=== PATIENT | male | born 1990 | race Caucasian/White ===

== ENCOUNTER 2017-02-24 18:25 | Inpatient (IN) | payer BC, OTHER ==
[~2017-02-24] VITALS: Ht 180.3 cm; Wt 54.0 kg
--- NOTE | 2017-02-25 01:05 | NUR ---
PRE-ADMISSION NOTE: Patient assessed in intake office at 0050 on 02/25/2017. Patient is ambulatory with steady gate, stable, AOx4, speech is clear. Patient states that he is here, in the [facility] " for Safety Detox from Benzodiazepines, Alcohol, and Opioid dependence". Patient states that he used Heroin via IV 1 gram every day since 2008. Last used 1 gram on 02/24/2017 at 1900". Patient also reports he used "Xanax 2 mg PO every two week. Last used 2 mg Xanax PO one week ago" . Finally, patient reports that he used Alcohol - Vodka 150 ml x 1 week. Last used Alcohol "Vodka 150 ml on "02/23/2017 ". Patient can't recalls exactly time he taken. Patient reports used Alcohol "Vodka x1 week since 2008 ". Patient reports smoking "1 pack of cigarettes every day". Patient reports Allergy to Cefaclor. Patient placed on Full Code, Regular Diet, Fall and Seizures Precautions. Patient denies History of Seizures. Patient's COWS 7, CIWA 7. The patient reported the following symptoms of withdrawal: anxiety, agitation, nervousness, tremors that can be felt, diaphoresis, restless legs, and fatigue. Patient denies SI/HI. Breathing is even and unlabored. Patient denies SOB and chest pain. Last BM was "02/24/2017". VS: T: 98.2; BP: 126/77; HR: 104; RR: 19; O2 SAT: 96%. Patient denies pain now: "0/10". Patient instructed on unit protocol of vitals Q4H and COWS/CIWA assessments. Patient verbalized understanding and agreement. Patient also instructed on policy regarding destruction of any controlled substances/prescriptions brought to facility, and handling of all medications. Patient verbalized understanding and agreement. Will complete admission assessment when patient is brought up to unit.
[2017-02-25 01:13] VITALS: BP 126/77
--- NOTE | 2017-02-25 01:13 | NUR ---
ADMISSION NOTE New patient is a 26 year old male admitted to [facility] on 02/25/2017 at 0113 for medically supervised safety withdrawal from Benzodiazepines, Alcohol and Opioid Patient reports Allergy to Cefaclor. Patient placed on Full Code, Regular Diet, Fall and Seizures Precautions. Patient denies a history of withdrawal-induced seizures. Past Medical History: Anxiety, Depression, Asthma, Chronic tobacco use, Alcohol dependence, Opioid dependence, Kidney Disease. Patient reports "I do not have PCP". Pre-assessment completed in intake. Patient provided UDS test at this time. Patient is ambulatory with steady gate, stable, A&Ox4, speech is clear. Height: 71 in, Weight:119 lbs by standing scale. VS upon admission: T: 98.4; BP: 122/77; HR: 104; RR: 19; O2 SAT: 96%. Patient denies pain now: "0/10". COWS 7, CIWA 7. The patient presented with anxiety, agitation, nervousness, tremors that can be felt, diaphoresis, restless legs, and fatigue. Patient denies SI/HI. Upon initial assessment, patient's Respirations unlabored and even. Patient denies SOB and chest pain. Lungs Sounds are clear bilaterally. Bowel Sounds active in all x4 quadrants. Abdomen is soft and non-tender. PERRLA, brisk capillary refill, pit shoveler equal and strong. Skin is intact, warm and dry to touch. Patient reports the following Substances Use: 1. "Heroin via IV since 2008. Heroin via IV 1 gram every day since 2014. Last used 1 gram on 02/24/2017 at 1900". 2. "Xanax PO since 2006. Xanax 2 mg PO every two week since 2014. Last used 2 mg Xanax PO one week ago". Patient can't recalls exactly time he taken. 3 ."Alcohol PO since 2008. Vodka 150 ml x 1 week since 2014. Last used Alcohol - Vodka 150 ml on "02/23/2017 ". Patient can't recalls exactly time he taken. Patient reports smoking "1 pack of cigarettes every day". Patient reports " the longest sobriety being for 11.5 months in 2014". Treatment History: "11 times - detox. Last it was in "[facility]"[place], [place]". "3 times I was with overdose in the hospital in the [place]. Last time - 2 weeks ago". MRSA nares swab labs collected and sent to Lab. No Home Medications. Patient oriented to his room, Nurse Call Light, and Serenity Floor. Encourage fluids as tolerated. Encourage to attend activities groups. All needs met. Safety measures on place. Call light within reach, bed in lowest position and locked, padded rails up bilaterally rails up bilaterally. Will continue to monitor closely. Addendum: 02/25/17 at 0554 by NELLY THIBODEAUX RN Skin is warm and dry to touch. Patient has healed scratches on the BUE, BLE, chest and back. Patient has track olivas on BUE. No open wounds noted.
--- NOTE | 2017-02-25 01:13 | NUR ---
ADMISSION NOTE New patient is a 26 year old male admitted to [facility] on 02/25/2017 at 0113 for medically supervised safety withdrawal from Benzodiazepines, Alcohol and Opioid Patient reports Allergy to Cefaclor. Patient placed on Full Code, Regular Diet, Fall and Seizures Precautions. Patient denies a history of withdrawal-induced seizures. Past Medical History: Anxiety, Depression, Asthma, Chronic tobacco use, Alcohol dependence, Opioid dependence, Kidney Disease. Patient reports "I do not have PCP". Pre-assessment completed in intake. Patient provided UDS test at this time. Patient is ambulatory with steady gate, stable, A&Ox4, speech is clear. Height: 71 in, Weight:119 lbs by standing scale. VS upon admission: T: 98.4; BP: 122/77; HR: 104; RR: 19; O2 SAT: 96%. Patient denies pain now: "0/10". COWS 7, CIWA 7. The patient presented with anxiety, agitation, nervousness, tremors that can be felt, diaphoresis, restless legs, and fatigue. Patient denies SI/HI. Upon initial assessment, patient's Respirations unlabored and even. Patient denies SOB and chest pain. Lungs Sounds are clear bilaterally. Bowel Sounds active in all x4 quadrants. Abdomen is soft and non-tender. PERRLA, brisk capillary refill, ultrasound spec equal and strong. Skin is intact, warm and dry to touch. Patient reports the following Substances Use: 1. "Heroin via IV since 2008. Heroin via IV 1 gram every day since 2014. Last used 1 gram on 02/24/2017 at 1900". 2. "Xanax PO since 2006. Xanax 2 mg PO every two week since 2014. Last used 2 mg Xanax PO one week ago". Patient can't recalls exactly time he taken. 3 ."Alcohol PO since 2008. Vodka 150 ml x 1 week since 2014. Last used Alcohol - Vodka 150 ml on "02/23/2017 ". Patient can't recalls exactly time he taken. Patient reports smoking "1 pack of cigarettes every day". Patient reports " the longest sobriety being for 11.5 months in 2014". Patient reports Treatment History: "11 times - detox. Last it was in "[facility]"[place], [place]". "3 times I was with overdose in the hospital in the [place]. Last time - 2 weeks ago". MRSA nares swab labs collected and sent to Lab. No Home Medications. Patient oriented to his room, Nurse Call Light, and Serenity Floor. Encourage fluids as tolerated. Encourage to attend activities groups. All needs met. Safety measures on place. Call light within reach, bed in lowest position and locked, padded rails up bilaterally rails up bilaterally. Will continue to monitor closely.
[2017-02-25 01:46] LABS: *AMPHETAMINE, URINE NEGATIVE (NEGATIVE); *BARBITURATE, URINE NEGATIVE (NEGATIVE); *CANNABINOID, URINE POSITIVE (NEGATIVE); *COCCAINE, URINE NEGATIVE (NEGATIVE); *OPIATE, URINE POSITIVE (NEGATIVE); *PHENCYCLIDINE SCREEN,URINE NEGATIVE (NEGATIVE)
--- NOTE | 2017-02-25 02:16 | NUR ---
PRN TRAZODONE 50 MG 1 TAB PO Patient c/o insomnia. PRN Trazodone 50 mg 1 tab PO administrated with full glass of water as ordered. Patient tolerated well. All needs met. Safety measures on place. Call light within reach, bed in lowest position and locked, padded rails up bilaterally rails up bilaterally. Will continue to monitor closely.
--- NOTE | 2017-02-25 03:16 | NUR ---
RE-ASSESSMENT Patient is sleeping. Respirations even and unlabored. RR:14. PRN Trazodone 50 mg 1 tab. PO was effective. All needs met. Safety measures on place. Call light within reach, bed in lowest position and locked, padded rails up bilaterally rails up bilaterally. Will continue to monitor closely.
[2017-02-25 04:00] VITALS: BP 108/57
[2017-02-25 05:11] LABS: BASOPHILS % (AUTO) 0.6 % (0.0-2.0); EOSINOPHILS # (AUTO) 0.2 K/uL (0.0-0.7); HEMATOCRIT 50.8 % (40-50); HEMOGLOBIN 17.4 G/DL (14.0-18.0); LYMPHOCYTES # (AUTO) 1.5 K/UL (0.8-4.8); LYMPHOCYTES % (AUTO) 20.2 % (20.5-51.5); MEAN CORPUSCULAR HEMOGLOBIN 32.3 UUG (27.0-31.0); MEAN CORPUSCULAR HGB CONC 34 g/dL (32.0-37.0); MEAN CORPUSCULAR VOLUME 94.7 FL (82.0-92.0); MONOCYTES # (AUTO) 1.3 K/UL (0.1-1.30); MONOCYTES % (AUTO) 17.2 % (0.0-11.0); NEUTROPHILS # (AUTO) 4.3 K/UL (1.8-8.9); PLATELET COUNT (AUTO) 114 K/UL (150-450); RED BLOOD CELL COUNT(AUTO) 5.37 MIL/UL (4.7-6.1); WHITE BLOOD COUNT (AUTO) 7.3 K/UL (4.0-11.2)
[2017-02-25 06:00] LABS: ETHANOL < 3 MG/DL (0-0)
[2017-02-25 06:01] LABS: ALANINE AMINOTRANSFERASE 380 U/L (16-63); ALKALINE PHOSPHATASE 65 U/L (50-136); AMYLASE 39 U/L (25-115); ASPARTATE AMINOTRANSFERASE 201 U/L (15-37); BILIRUBIN,TOTAL 1.8 mg/dL (0.2-1.0); CARBON DIOXIDE 36 mmol/L (21-32); CHLORIDE 95 mmol/L (98-107); CREATININE 1.1 mg/dL (0.6-1.3); GLUCOSE 102 mg/dL (74-106); LIPASE 84 U/L (73-393); MAGNESIUM 2.1 mg/dL (1.8-2.4); TOTAL PROTEIN, SERUM 8.4 g/dL (6.4-8.2); UREA NITROGEN, BLOOD 12 mg/dL (7-18)
--- NOTE | 2017-02-25 07:11 | NUR ---
END OF SHIFT NOTE: Patient is a 26 year old male admitted to [facility] on 02/25/2017 for medically supervised safety withdrawal from Benzodiazepines, Alcohol and Opioid. Patient reports Allergy to Cefaclor. Patient placed on Full Code, Regular Diet, Fall and Seizures Precautions. Patient denies a history of withdrawal-induced seizures. Past Medical History: Anxiety, Depression, Asthma, Chronic tobacco use, Alcohol dependence, Opioid dependence, Kidney Disease. Patient reports the following Substances Use: "Heroin via IV since 2008. Heroin via IV 1 gram every day since 2014. Last used 1 gram on 02/24/2017 at 1900". "Xanax PO since 2006. Xanax 2 mg PO every two week since 2014. Last used 2 mg Xanax PO one week ago". "Alcohol PO since 2008. Vodka 150 ml x 1 week since 2014. Last used Alcohol - Vodka 150 ml on "02/23/2017 ". Patient reports smoking "1 pack of cigarettes every day". Patient reports " the longest sobriety being for 11.5 months in 2014". Treatment History: "11 times - detox. Last it was in "[facility]"[place], [place]". "x3 was with overdose in the hospital in the [place]. Last time - 2 weeks ago". MRSA nares swab labs collected and sent to Lab. No Home Medications. VS @ 0400: T: 97.9, BP: 108/57, HR:81, RR:16, RA O2Sat: 97%. Patient denies any pain now: "0/10". COWS 6, CIWA 3 @ 0400. Respirations unlabored and even. Skin is warm and dry to touch. Patient has healed scratches on the BUE, BLE, chest and back. Patient has track olivas on BUE. No open wounds noted. Encourage fluids as tolerated. Encourage to attend activities groups. PRN Trazodone 50 mg 1 tab PO administrated for insomnia @ 0226 was effective. Patient slept 3 hours, intake 355 ml, voided x2. All needs met. Safety measures on place. Call light within reach, bed in lowest position and locked, padded rails up bilaterally. Patient endorsed to day shift nurse.
--- NOTE | 2017-02-25 07:30 | NUR ---
START OF SHIFT Pt 26 y/o male admitted for benzo, alcohol, and opioid dependence. Pt received in room on bed with eyes closed resting, but easily arousable to name. Pt alert and oriented to name, place, and time. Perrla. Skin warm and slightly moist to touch. Respirations even and unlabored. It was reported that pt slept for 3 hours last night. Bed on lowest position with side rails x2 up for safety. Call light within reach. No distress noted at this time.
[2017-02-25 08:06] VITALS: BP 102/62
[2017-02-25 10:12] LABS: BAND % (MANUAL) 12 % (0-10); EOSINOPHILS % (MANUAL) 2 % (0-8); LYMPHOCYTES % (MANUAL) 26 % (20-40); MONOCYTES % (MANUAL) 15 % (2-10); NEUTROPHILS % (MANUAL) 45 % (42-75)
[2017-02-25 12:30] LABS: THYROID STIMULATING HORMONE 0.914 mIU/mL (0.358-3.740)
[2017-02-25 13:01] VITALS: BP 105/67
[2017-02-25 18:44] VITALS: BP 109/63
--- NOTE | 2017-02-25 18:48 | NUR ---
END OF SHIFT Pt 26 y/o male admitted for benzo, alcohol, and opioid dependence. Pt alert and oriented to name, place, and time. Perrla. Skin warm and slightly moist to touch. Respirations even and unlabored. Pt observed mostly isolative to room this morning. Pt did attend group activity. Pt with periods of anxiety this morning. Pt medication compliant and tolerated well. Bed on lowest position with side rails x2 up for safety. Call light within reach. No distress noted at this time.
--- NOTE | 2017-02-25 18:48 | NUR ---
START OF SHIFT NOTE: Patient is a 26 year old male admitted to [facility] on 02/25/2017 for medically supervised safety withdrawal from Benzodiazepines, Alcohol and Opioid. Patient reports Allergy to Cefaclor. Patient placed on Full Code, Regular Diet, Fall and Seizures Precautions. Patient denies a history of withdrawal-induced seizures, continue 5 day Ativan and 4 Day Subutex Taper since 02/25/2017, which tolerated well without ASE. PMH: Anxiety, Depression, Asthma, Chronic tobacco use, Alcohol dependence, Opioid dependence, Kidney Disease. Patient reports the following Substances Use: "Heroin via IV since 2008. Heroin via IV 1 gram every day since 2014. Last used 1 gram on 02/24/2017 at 1900". "Xanax PO since 2006. Xanax 2 mg PO every two week since 2014. Last used 2 mg Xanax PO one week ago". "Alcohol PO since 2008. Vodka 150 ml x 1 week since 2014. Last used Alcohol - Vodka 150 ml on "02/23/2017 ". Patient reports smoking "1 pack of cigarettes every day". Patient reports " the longest sobriety being for 11.5 months in 2014". Treatment History: "11 times - detox. Last it was in "[facility]", [place]". "x3 was with overdose in the hospital in the [place]. Last time - 2 weeks ago". MRSA nares swab labs collected and sent to Lab. No Home Medications. Upon endorsement by day shift nurse, patient is alert and oriented x4. VS: T: 98'0, BP: 126/95, HR:65, RR:19, RA O2Sat: 100%. Patient c/o body aches "12/23". COWS 7, CIWA 7. The patient reported the following symptoms of withdrawal: anxiety, agitation, nervousness, tremors that can be felt, diaphoresis, restless legs, and fatigue. Patient denies SI/HI. Upon initial assessment, patient's Respirations unlabored and even. Patient denies SOB and chest pain. Lungs Sounds are clear bilaterally. Bowel Sounds active in all x4 quadrants. Abdomen is soft and non-tender. PERRLA, brisk capillary refill, court magistrate equal and strong. Skin is intact, warm and dry to touch. Encourage fluids as tolerated. Encourage to attend activities groups. All needs met. Safety measures on place. Call light within reach, bed in lowest position and locked, padded rails up bilaterally rails up bilaterally. Patient endorsed by day shift nurse. Report received. Will continue to monitor closely.
[2017-02-25 20:00] VITALS: BP_SYST 109; BP_SYST 120; BP_DIAS 69; BP_DIAS 85
--- NOTE | 2017-02-25 23:33 | NUR ---
RE-ASSESSMENT Patient is sleeping. Respirations even and unlabored. RR:15. PRN Trazodone 50 mg 1 tab PO was effective. All needs met. Safety measures on place. Call light within reach, bed in lowest position and locked, padded rails up bilaterally rails up bilaterally. Will continue to monitor closely.
[2017-02-26] VITALS: BP 102/65
--- NOTE | 2017-02-26 00:23 | NUR ---
PRN ROBAXIN 750 MG 1 TAB PO ADMINISTRATION Patient c/o myalgia. PRN Robaxin 750 mg 1 tab PO for myalgia administrated with full glass of water as ordered. Patient tolerated well. All needs met. Safety measures on place. Call light within reach, bed in lowest position and locked, padded rails up bilaterally rails up bilaterally. Will continue to monitor closely.
--- NOTE | 2017-02-26 01:23 | NUR ---
RE-ASSESSMENT Patient is sleeping. Respirations even and unlabored. RR:14. PRN Robaxin 750 mg 1 tab PO for myalgia was effective. All needs met. Safety measures on place. Call light within reach, bed in lowest position and locked, padded rails up bilaterally rails up bilaterally. Will continue to monitor closely.
[2017-02-26 04:00] VITALS: BP 93/55
--- NOTE | 2017-02-26 07:09 | NUR ---
END OF SHIFT NOTE: New patient is a 26 year old male admitted to [facility] on 02/25/2017 for medically supervised safety withdrawal from Benzodiazepines, Alcohol and Opioid, continue ordered 5 day Ativan and 4 Day Subutex Taper since 02/25/2017, tolerated well without ASE. Patient reports Allergy to Cefaclor. Patient is on Full Code, Regular Diet, Fall and Seizures Precautions. Patient denies a history of withdrawal-induced seizures. Past Medical History: Anxiety, Depression, Asthma, Chronic tobacco use, Alcohol dependence, Opioid dependence, Kidney Disease. Last VS @ 0400: T: 98.1, BP: 93/51, HR:76, RR:14, RA O2Sat: 96%. Pain level: "0/10". COWS 5, CIWA 3 @ 0400. Respirations unlabored and even. Skin is warm and dry to touch. Patient has healed scratches on the BUE and BLE, on the chest and back. Patient has track olivas on BUE. No open wounds noted. Encourage fluids as tolerated. Encourage to attend activities groups. PRN Trazodone 50 mg 1 tab PO administrated for insomnia @ 2233 and PRN Robaxin 750 mg 1 tab PO administrated @ 0023 for myalgia, were effective. Patient slept 11/2 hours, intake 2,197 ml, voided x3, stool x1. All needs met. Safety measures on place. Call light within reach, bed in lowest position and locked, padded rails up bilaterally. Patient endorsed to day shift nurse. Addendum: 02/27/17 at 0552 by NELLY THIBODEAUX RN slept 1 hour 30 minutes.
[2017-02-26 08:00] VITALS: BP 105/62
--- NOTE | 2017-02-26 10:35 | NUR ---
START OF SHIFT NOTE 26 year old male, admitted 02/25/2017 for medically supervised safety withdrawal from Benzodiazepines, Alcohol and Opioid, ordered 5 day Ativan and 4 Day Subutex Taper since 02/25/2017. Patient reports Allergy to Cefaclor. Patient is on Full Code, Regular Diet, Fall and Seizures Precautions. Patient denies a history of withdrawal-induced seizures. Past Medical History: Anxiety, Depression, Asthma, Chronic tobacco use, Alcohol dependence, Opioid dependence, Kidney Disease. Patient has healed scratches on the BUE and BLE, on the chest and back. Patient has track olivas on BUE. No open wounds noted. Received report from night nurse. Last COW 5 and CIWA 3. Slept 1.5 hours. At 0730, pt with eyes closed, resting, easily arousable. Safety measures on place. Call light within reach, bed in lowest position and locked, padded rails up bilaterally. Will continue to monitor.
[2017-02-26 11:11] LABS: HEPATITIS B SURFACE AG Negative (Negative)
[2017-02-26 12:00] VITALS: BP 117/73
--- NOTE | 2017-02-26 13:00 | NUR ---
PRN Pt states feels very anxious. Catapres po prn per MD order given and tolerated well.
--- NOTE | 2017-02-26 13:00 | NUR ---
PRN Pt states has lower back and bilateral leg aches 7/10. Robaxin po prn per MD order given and tolerated well.
--- NOTE | 2017-02-26 14:00 | NUR ---
PRN CONOR Pt observed in patio walking around with no c/o pain noted at this time. No distress noted at this time.
--- NOTE | 2017-02-26 14:00 | NUR ---
PRN EVAL Pt observed in patio walking around. No distress noted at this time.
[2017-02-26 17:00] VITALS: BP 119/80
--- NOTE | 2017-02-26 17:00 | NUR ---
NSG ENTRY Boost not on pt tray. Dietary made aware. Awaiting boost to be delivered.
--- NOTE | 2017-02-26 19:17 | NUR ---
START OF SHIFT NOTE: Patient is a 26 year old male admitted to [facility] on 02/25/2017 for medically supervised safety withdrawal from Benzodiazepines, Alcohol and Opioid. Patient reports Allergy to Cefaclor. Patient placed on Full Code, Regular Diet, Fall and Seizures Precautions. Patient denies a history of withdrawal-induced seizures, continue 5 day Ativan and 4 Day Subutex Taper since 02/25/2017, which tolerated well without ASE. PMH: Anxiety, Depression, Asthma, Chronic tobacco use, Alcohol dependence, Opioid dependence, Kidney Disease. Patient reports the following Substances Use: "Heroin via IV since 2008. Heroin via IV 1 gram every day since 2014. Last used 1 gram on 02/24/2017 at 1900". "Xanax PO since 2006. Xanax 2 mg PO every two week since 2014. Last used 2 mg Xanax PO one week ago". "Alcohol PO since 2008. Vodka 150 ml x 1 week since 2014. Last used Alcohol - Vodka 150 ml on "02/23/2017 ". Patient reports smoking "1 pack of cigarettes every day". Patient reports " the longest sobriety being for 11.5 months in 2014". Treatment History: "11 times - detox. Last it was in "[facility]", [place]". "x3 was with overdose in the hospital in the [place]. Last time - 2 weeks ago". MRSA nares swab labs collected and sent to Lab. No Home Medications. Upon endorsement by day shift nurse, patient is alert and oriented x4. VS: T: 97.9, BP: 120/63, HR:78, RR:15, RA O2Sat: 96%. Patient c/o body aches "12/23". COWS 7, CIWA 7. The patient reported the following symptoms of withdrawal: anxiety, agitation, nervousness, tremors that can be felt, diaphoresis, restless legs, and fatigue. Patient denies SI/HI. Upon initial assessment, patient's Respirations unlabored and even. Patient denies SOB and chest pain. Lungs Sounds are clear bilaterally. Bowel Sounds active in all x4 quadrants. Abdomen is soft and non-tender. PERRLA, brisk capillary refill, consumer insights intern equal and strong. Skin is intact, warm and dry to touch. Encourage fluids as tolerated. Encourage to attend activities groups. All needs met. Safety measures on place. Call light within reach, bed in lowest position and locked, padded rails up bilaterally rails up bilaterally. Patient endorsed by day shift nurse. Report received. Will continue to monitor closely.
--- NOTE | 2017-02-26 19:17 | NUR ---
END OF SHIFT Pt 26 y/o male admitted for benzo, alcohol, and opioid dependence. Pt alert and oriented to name, place, and time. Perrla. Skin warm and slightly moist to touch. Respirations even and unlabored. Pt observed mostly isolative to room this morning. Pt did not attend group activity. Pt with periods of anxiety this morning. Pt medication compliant and tolerated well. Bed on lowest position with side rails x2 up for safety. Call light within reach. No distress noted at this time.
[2017-02-26 20:00] VITALS: BP 120/63
[2017-02-27] VITALS: BP 106/63
[2017-02-27 04:00] VITALS: BP 103/53
--- NOTE | 2017-02-27 07:11 | NUR ---
END OF SHIFT NOTE: New patient is a 26 year old male admitted to [facility] on 02/25/2017 for medically supervised safety withdrawal from Benzodiazepines, Alcohol and Opioid, continue ordered 5 day Ativan and 4 Day Subutex Taper since 02/25/2017, tolerated well without ASE. Patient reports Allergy to Cefaclor. Patient is on Full Code, Regular Diet, Fall and Seizures Precautions. Patient denies a history of withdrawal-induced seizures. Past Medical History: Anxiety, Depression, Asthma, Chronic tobacco use, Alcohol dependence, Opioid dependence, Kidney Disease. Last VS @ 0400: T: 98.1, BP: 103/53, HR:65, RR:18, RA O2Sat: 98%. Pain level: "0/10". COWS 4, CIWA 3 @ 0400. Respirations unlabored and even. Skin is warm and dry to touch. Patient has healed scratches on the BUE, BLE, chest and back. Patient has track olivas on BUE. No open wounds noted. Encourage fluids as tolerated. Encourage to attend activities groups. PRN Medications administrated during my shift. Patient slept 4 hours, intake 651 ml, voided x1. All needs met. Safety measures on place. Call light within reach, bed in lowest position and locked, padded rails up bilaterally. Patient endorsed to day shift nurse. Addendum: 02/27/17 at 0714 by NELLY THIBODEAUX RN Patient is a 26 year old male admitted to [facility] on 02/25/2017 for medically supervised safety withdrawal from Benzodiazepines, Alcohol and Opioid, continue ordered 5 day Ativan and 4 Day Subutex Taper since 02/25/2017, tolerated well without ASE.
--- NOTE | 2017-02-27 07:45 | NUR ---
START OF SHIFT Rcvd client from ongoing nurse, client is in room, he is in bed, sounds asleep, easy to arouse, RR 16 even, non-labored, skin clammy and warm to touch. Client is a 26 y/o male admitted for withdrawal from alcohol, benzodiazepine, and opiates. Client is on 5 day Ativan / 4 day Subutex taper for withdrawal symptoms management (day 2nd), tolerating well. Last CIWA 3/COWS 4 @ 2400. Client had an uneventful night. He reports Allergies to Cefador, hydroxyzine, full code, regular. Client denies history of withdrawal-induced seizure. He is on seizure precautions. Call light within reach. Side rails up x2/padded, bed locked and in low position.
[2017-02-27 08:00] VITALS: BP 98/57
--- NOTE | 2017-02-27 08:15 | NUR ---
Nursing Notes RN unable to assess CIWA/COWS, client is too sedated, RR 16, even, non-labored. MD and charge nurse notified. Will continue to monitor. Call light within reach.
--- NOTE | 2017-02-27 08:36 | NUR ---
Zero induration noted at TB site on L forearm
[2017-02-27 12:32] VITALS: BP 109/70
--- NOTE | 2017-02-27 15:15 | NUR ---
Baclofen 10mg and Subutex 2mg held, client wants to sleep only at this time, client's vitals are WNL's, COWS 4. MD and charge nurse notified.
[2017-02-27 16:40] VITALS: BP 111/88
--- NOTE | 2017-02-27 16:40 | NUR ---
PRN Bentyl 20mg, Clonidine 0.1mg and Robaxin 750mg Client reports abdominal spasms, irritability, anxiety, cold/chills and generalized muscle pain 6/10, above medication administered PO. Will continue to monitor. Call light within reach.
--- NOTE | 2017-02-27 17:40 | NUR ---
Reassessment PRN Bentyl 20mg, Clonidine 0.1mg and Robaxin 750mg Client reports relief from abdominal spasms, chills and cold, he appears less anxious, generalized muscle pain is 2/10, but tolerable. Will continue to monitor. Call light within reach.
--- NOTE | 2017-02-27 18:55 | NUR ---
END OF SHIFT Endorsed client to incoming nurse, Client is a 26 y/o male admitted for withdrawal from alcohol, benzodiazepine, and opiates. Client is on 5 day Ativan / 4 day Subutex taper for withdrawal symptoms management (day 2nd), tolerating well. Last CIWA 12 @ 1640, Dr. Pineda modified Subutex taper and client got a 7000 Subutex 2 mg. Client slept most of the day, Ativan 0900 and 1300 , Subutex 0900 & 1500 held client was too sedated, MD and charge nurse were notified. PRN Bentyl 20mg, Clonidine 0.1mg and Robaxin 750mg for abdominal spasms, irritability, anxiety, cold/chills and generalized muscle pain 11/23, noted effective. Client fluid intake 700mL, void x 3, stool x 1. Client was not compliant with group therapy d/t withdrawal symptoms. He reports Allergies to Cefador, hydroxyzine, full code, regular. Client denies history of withdrawal-induced seizure. He is on seizure precautions. Call light within reach. Side rails up x2/padded, bed locked and in low position.
[2017-02-27 20:00] VITALS: BP 103/70
--- NOTE | 2017-02-27 20:00 | NUR ---
START OF SHIFT Pt is a 26 y/o male admitted on 02/25/17 for benzos, ETOH and opiates. 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 Pt is full code, regular diet, allergic to cefaclor and hydroxyzine, and on fall and seizure precautions. No reported seizure hx. Pt is on a 5 day Ativan and 4 day Subutex taper, tolerating well. Upon assessment, pt is mildly anxious with irritability noted. Skin noted to be flushed and clammy. Respirations 16, even and unlabored. Denies N/V/D. Denies chest pain or SOB. Medications due. Safety measures in place. Call light within reach. Will continue to monitor.
--- NOTE | 2017-02-27 23:15 | NUR ---
PRN SEROQUEL PRN Seroquel per client request for sleep aid. Safety measures in place. Call light within reach. Will continue to monitor.
[2017-02-28] VITALS: BP 127/71
--- NOTE | 2017-02-28 | NUR ---
COW/CIWA DEFERRED COW and CIWA deferred. Pt is laying in bed with eyes closed. Will reassess when pt awake per MD order. Respirations 18, even and unlabored. Safety measures in place. Call light within reach.
--- NOTE | 2017-02-28 00:15 | NUR ---
PRN SEROQUEL REASSESSMENT Pt is laying in bed with eyes closed. Respirations 18, even and unlabored. Safety measures in place. Call light within reach. Will continue to monitor.
[2017-02-28 04:00] VITALS: BP 94/46
--- NOTE | 2017-02-28 04:00 | NUR ---
VITAL SIGNS BP:94/46, P:68, R:14, T: 98.3, 02: 96%, PA: 0. COWS and CIWA deferred d/t pt sleeping, to assess while pt is awake as ordered by MD. Pt is laying in bed with eyes closed. Respirations 14, even and unlabored. Safety measures in place. Call light within reach. Will continue to monitor.
--- NOTE | 2017-02-28 07:00 | NUR ---
END OF SHIFT Pt is a 26 y/o male admitted on 02/25/17 for benzos, ETOH and opiates. Pt was dependent on heroin 1 g daily, xanax 2 mg daily, and vodka 150 mL daily. Pt is full code, regular diet, allergic to cefaclor and hydroxyzine, and on fall and seizure precautions. No reported seizure hx. Pt is on a 5 day Ativan and 4 day Subutex taper, tolerating well. During shift, pt presented with mild anxiety and irritability. Skin also noted to be flushed and clammy. Scheduled tapered medications administered, effective in management of s/s of withdrawal as verbalized by pt. Last COW 5 and CIWA 5. Pt given PRN Seroquel at 2315 for slept aid per pt request. Pt slept 6 hours. Intake 1796mL, voids x2. Safety measures in place. Call light within reach. Pt needs have been met. Endorsed to day shift nurse.
--- NOTE | 2017-02-28 07:45 | NUR ---
START OF SHIFT Rcvd client from ongoing nurse, client is in room, he is in room, a/o x 4, he presents with depressed mood, flat affect, he reports chills, cold, stomach cramps, restless legs and decreased of appetite. Client is a 26 y/o male admitted for withdrawal from alcohol, benzodiazepine, and opiates. Client is on 5 day Ativan / 4 day Subutex taper for withdrawal symptoms management (day 3), tolerating well. Last CIWA 5/COWS 5 @ 2400. PRN Seroquel 100mg for inability to sleep, he slept 6 hrs. Adequate PO fluid intake 1500ml, void x 4, stool x 1. Client was not compliant with group therapy, encouragement needed. He reports Allergies to Cefador, hydroxyzine, full code, regular. Client denies history of withdrawal-induced seizure. He is on seizure precautions. Call light within reach. Side rails up x2/padded, bed locked and in low position.
[2017-02-28 08:55] VITALS: BP 118/61
[2017-02-28 12:55] VITALS: BP 130/82
--- NOTE | 2017-02-28 15:04 | NUR ---
Therapist prompted client about group times. Client stated he will attend groups today.
[2017-02-28 16:55] VITALS: BP 122/75
--- NOTE | 2017-02-28 18:35 | NUR ---
Dr Pineda notified that client is requesting test results for HIV and Hep C. Dr. Pineda stated, "I will talk to him, thank you."
--- NOTE | 2017-02-28 18:44 | NUR ---
END OF SHIFT Endorsed client to incoming nurse, Client is a 26 y/o male admitted for withdrawal from alcohol, benzodiazepine, and opiates. Client is on 5 day Ativan / 4 day Subutex taper for withdrawal symptoms management (day 2nd), tolerating well. Last CIWA 5/COWS 6 @ 1655. Client is in bed, a/o x4, he presents with anxious mood. Adequate PO fluid intake 1500ml, void x 4, stool x 1. Client was not compliant with group therapy, encouragement needed. He reports Allergies to Cefador, hydroxyzine, full code, regular. Client denies history of withdrawal-induced seizure. He is on seizure precautions. Call light within reach. Side rails up x2/padded, bed locked and in low position.
--- NOTE | 2017-02-28 19:30 | NUR ---
START OF SHIFT Pt is a 26 y/o male admitted on 02/25/17 for benzos, ETOH and opiates. 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 Pt is full code, regular diet, allergic to cefaclor and hydroxyzine, and on fall and seizure precautions. No reported seizure hx. Pt is on a 5 day Ativan and 4 day Subutex taper, tolerating well. No PRNS given during day shift. Upon arrival, pt was in meeting. Upon assessment pt complains of back and leg pain, fatigue, and moderate anxiety. Pt presents with increased HR 94 and larger than normal pupil size. Respirations 16, even and unlabored. Denies N/V/D. Denies chest pain or SOB. Medications due. Safety measures in place. Call light within reach. Will continue to monitor.
[2017-02-28 20:00] VITALS: BP 114/74
--- NOTE | 2017-02-28 22:49 | NUR ---
PRN SEROQUEL PRN Seroquel given for sleep aid per client request. Respirations are 16, even and unlabored. Safety measures in place. Call light within reach. Will continue to monitor.
[2017-03-01] VITALS: BP 113/63
--- NOTE | 2017-03-01 | NUR ---
VITAL SIGNS BP 113/63 P 84 R16 02 95% T 98.0 PA 0/10 Pt is laying in bed with eyes closed. COWS/CIWA deferred, to be reassessed when awake per MD order. Respirations 18, even and unlabored. Safety measures in place. Call light within reach.
[2017-03-01 04:00] VITALS: BP 107/62
--- NOTE | 2017-03-01 04:00 | NUR ---
VITAL SIGNS BP 107/62 P 69 R16 02 98% T 97.7 PA 0/10 Pt is laying in bed with eyes closed. COWS/CIWA deferred, to be reassessed when awake per MD order. Respirations 16, even and unlabored. Safety measures in place. Call light within reach.
--- NOTE | 2017-03-01 07:05 | NUR ---
Pt is a 26 y/o male admitted on 02/25/17 for benzos, ETOH and opiates. 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 Pt is full code, regular diet, allergic to cefaclor and hydroxyzine, and on fall and seizure precautions. No reported seizure hx. Pt is on a 5 day Ativan and 4 day Subutex taper starting on 02/25/17, tolerating well. Pt complained of back and leg pain, fatigue, and moderate anxiety. Pt also presented with increased HR at 94 and larger than normal pupil size. Administered scheduled medication and PRN Seroquel, effective in management of s/s of withdrawal as verbalized by pt and AEB pt sleeping throughout night. Vitals remained WNL. Last COW 5, CIWA 3. Pt slept 8 hours. Intake of 1460 ml, void x 3, stool x 0. Safety measures in place. Call light within reach. Pt needs have been met. Endorsed to day shift nurse. Addendum: 03/01/17 at 0715 by MAMADOU CELESTE RN END OF SHIFT
--- NOTE | 2017-03-01 07:40 | NUR ---
START OF SHIFT NOTE: Received report from tour production supervisor nurse. Pt is a 26 y/o male admitted on 02/25/17 for benzos, ETOH and opiates. Pt is on a 5 day Ativan taper and a 4 day Subutex taper. Tolerating well. Pt is alert and oriented X4. Color good, skin warm and dry. Respirations even and unlabored. Resting in bed. Safety precautions observed. Call light within reach. Will continue to monitor.
[2017-03-01 08:16] VITALS: BP 116/62
[2017-03-01 08:34] LABS: BASOPHILS # (AUTO) 0.1 K/uL (0.0-8.0); BASOPHILS % (AUTO) 1.1 % (0.0-2.0); EOSINOPHILS # (AUTO) 0.4 K/uL (0.0-0.7); EOSINOPHILS % (AUTO) 7.5 % (0.0-7.0); HEMATOCRIT 47.2 % (40-50); HEMOGLOBIN 16.4 G/DL (14.0-18.0); LYMPHOCYTES # (AUTO) 2.8 K/UL (0.8-4.8); LYMPHOCYTES % (AUTO) 51.1 % (20.5-51.5); MEAN CORPUSCULAR HEMOGLOBIN 33.2 UUG (27.0-31.0); MEAN CORPUSCULAR HGB CONC 35 g/dL (32.0-37.0); MEAN CORPUSCULAR VOLUME 95.4 FL (82.0-92.0); MONOCYTES # (AUTO) 0.5 K/UL (0.1-1.30); MONOCYTES % (AUTO) 9.2 % (0.0-11.0); NEUTROPHILS # (AUTO) 1.7 K/UL (1.8-8.9); NEUTROPHILS % (AUTO) 31.1 % (38.5-71.5); PLATELET COUNT (AUTO) 134 K/UL (150-450); RED BLOOD CELL COUNT(AUTO) 4.95 MIL/UL (4.7-6.1); WHITE BLOOD COUNT (AUTO) 5.5 K/UL (4.0-11.2)
[2017-03-01 09:33] LABS: BAND % (MANUAL) 3 % (0-10); EOSINOPHILS % (MANUAL) 5 % (0-8); LYMPHOCYTES % (MANUAL) 51 % (20-40); MONOCYTES % (MANUAL) 10 % (2-10); NEUTROPHILS % (MANUAL) 31 % (42-75)
[2017-03-01 09:35] LABS: BILIRUBIN,DIRECT 0.1 mg/dL (0.0-0.2); BILIRUBIN,TOTAL 0.5 mg/dL (0.2-1.0); CREATININE 0.8 mg/dL (0.6-1.3); MAGNESIUM 2.2 mg/dL (1.8-2.4); POTASSIUM 4.4 mmol/L (3.5-5.1); TOTAL PROTEIN, SERUM 6.8 g/dL (6.4-8.2)
--- NOTE | 2017-03-01 11:40 | NUR ---
One time dose of Ativan 1mg and Subutex 2mg sl given. COWS 3 CIWA 3
[2017-03-01 12:24] VITALS: BP 116/62
--- NOTE | 2017-03-01 12:40 | NUR ---
Pt feels improved after Ativan and Subutex one time doses. COWS 2 CIWA 2
--- NOTE | 2017-03-01 15:33 | NUR ---
Clonidine 0.1mg PO given: Patient given OT dose of Clonidine 0.1mg PO as ordered for anxiety and agitation per MD. Non-pharmacological interventions were provided but ineffective. Will monitor for effectiveness. BP 123/81.
--- NOTE | 2017-03-01 16:26 | NUR ---
Pt feels improved after Clonidine 0.1 mg Anxiety decreased.
[2017-03-01 16:51] VITALS: BP 100/68
--- NOTE | 2017-03-01 18:38 | NUR ---
END OF SHIFT NOTE: Report given to restaurant shift supervisor nurse . Pt is a 26 y/o male admitted on 02/25/17 for benzos, ETOH and opiates. Pt is on a 5 day Ativan taper and a 4 day Subutex taper. Tolerating well. Pt is alert and oriented X4. Color good, skin warm and dry. Respirations even and unlabored. Vital signs have remained stable throughout shift. One time dose of Ativan 1mg and Subutex 2mg sl give @ 1140. Pt also received Clonidine 0.1ng @ 1530. Last COWS 3 and CIWA 3 @1500. Safety precautions observed. Call light within reach.
[2017-03-01 20:00] VITALS: BP 128/77
--- NOTE | 2017-03-01 20:00 | NUR ---
START OF SHIFT Pt is a 49 y/o male admitted on 02/26/17 for benzos, ETOH, opiate dependence. Pt is here for heroin 3-5 g IV daily, xanax 2-4 mg x 2-3 weekly, alcohol 6-pack and a bottle of vodka daily, cocaine 1 g x 2-3 weekly, meth 1 g weekly. Pt is full code, allergic to bee venom, regular diet, and fall/seizure precautions. Pt reports PMH of anxiety, depression, Hep C, and surgery on bilateral legs. No reported seizure hx. Pt started on a 5 day Subutex and 5 day Ativan taper starting on 02/26/17. Subutex 4 mg x 1 and PRN Toradol given during day shift. Upon assessment pt is complaining of pain 6/10 in legs, mild to moderate anxiety, intermittent nausea. Pt also presents with flushing and inability to sit still. Respirations 16, even and unlabored. Denies vomiting or diarrhea. Denies chest pain or SOB. Medications due. Safety measures in place. Call light within reach. Will continue to monitor.
--- NOTE | 2017-03-01 22:18 | NUR ---
PRN SEROQUEL PRN Seroquel given for sleep aid per client request. Safety measures in place. Will continue to monitor. Pt administered four 25 mg tablets, 100 mg tab not available.
--- NOTE | 2017-03-01 23:18 | NUR ---
PRN SEROQUEL REASSESSMENT Upon reassessment, pt is laying in bed with eyes closed. Respirations 16, even and unlabored. Safety measures in place. Call light within reach. Will continue to monitor.
[2017-03-02] VITALS: BP 108/71
--- NOTE | 2017-03-02 | NUR ---
VITAL SIGNS BP 108/71, P 81, R 15, 02 98%, T 97.8, PA 0/10 COWS/CIWA deferred. Pt is laying in bed with eyes closed, to be reassessed when pt is awake per MD order. Respirations are even and unlabored. Safety measures in place. Call light within reach. Will continue to monitor.
[2017-03-02 04:00] VITALS: BP 103/66
--- NOTE | 2017-03-02 04:00 | NUR ---
VITAL SIGNS BP 103/66, P 92, R 17, 02 98%, T 98.6, PA 0/10 COWS/CIWA deferred. Pt is laying in bed with eyes closed, to be reassessed when pt is awake per MD order. Respirations are even and unlabored. Safety measures in place. Call light within reach. Will continue to monitor.
--- NOTE | 2017-03-02 07:00 | NUR ---
END OF SHIFT Pt is a 26 y/o male admitted on 02/25/17 for benzos, ETOH, and opiates. Pt is here for heroin 1 g IV daily, xanax 2 mg daily, vodka 150 ml daily. Pt is full code, regular diet, allergic to cefaclor and hydroxyzine and on fall and seizure precautions. No reported seizure hx. Pt is on a 5 day Ativan and 4 day Subutex taper, tolerating well. During shift pt presented with moderate anxiety and skin flushing. Pt complained of body aches. Scheduled medications and PRN Seroquel administered, effective in management of s/s AEB COW 4 CIWA 4. Pt slept 7 hours. Intake 2050 ml, void x 3, stool x 1. Safety measures in place. Call light within reach. Endorsed to day shift nurse.
--- NOTE | 2017-03-02 07:01 | NUR ---
Start of Shift Notes: Received patient in his room. Alert and oriented x 4. Verbally responsive. Able to make needs known. Respirations even and unlabored. No SOB noted. Skin warm and dry to touch. Abdomen soft and non-distended with (+) BS in all 4 quadrants. No complains of N/V/D or constipation noted. Voids independently. Ambulatory ad capri with steady gait. Patient is a 26 year old male admitted for opiate/BZO and ETOh dependence who was placed on a 5-day Ativan and 4-day Subutex taper as ordered. No adverse reactions noted. Allergic to Cefaclor and hydroxyzine. Regular diet. FULL CODE. Educated patient on his current plan of care and his medication regimen. Encouraged oral fluid intake and encouraged group participation to learn new skills to prevent relapse. Will continue to monitor closely.
[2017-03-02 08:00] VITALS: BP 109/66
--- NOTE | 2017-03-02 08:50 | NUR ---
Clonidine 0.1mg PO given: Patient complained of anxiety with mild agitation. Non-pharmacological interventions were provided but ineffective. Requested for Clonidine. Clonidine administered as ordered. BP 109/66, Pulse 81.
--- NOTE | 2017-03-02 09:50 | NUR ---
Re-assessment: Per patient, PRN Clonidine was effective in reducing patient's anxiety and agitation.
--- NOTE | 2017-03-02 10:44 | NUR ---
Therapist prompted client about group times. Client stated he will attend both groups today.
[2017-03-02 12:00] VITALS: BP 117/69
--- NOTE | 2017-03-02 14:10 | NUR ---
Nicoderm patch not administered: Patient refused nicotine patch to aid in smoking cessation at this time. Per patient, he will continue to smoke today and try the patch tomorrow AM. Smoking cessation education provided. Education on the risk and benefits still refused. Notified
[2017-03-02] MEDS ORDERED: NICO4GUM38 BC (15:44)
[2017-03-02] MEDS ORDERED: DICY20TA28 PO (15:44)
[2017-03-02] MEDS ORDERED: CLON0.1T14 PO (15:44)
[2017-03-02] MEDS ORDERED: IBUP-1953 PO (15:44)
[2017-03-02] MEDS ORDERED: NICO1PAT25 TD (15:44)
[2017-03-02] MEDS ORDERED: GABA-534 PO (15:44)
[2017-03-02] MEDS ORDERED: BACL20TA PO (15:44)
[2017-03-02] MEDS ORDERED: QUET100T PO (15:44)
[2017-03-02 16:00] VITALS: BP 117/78
--- NOTE | 2017-03-02 19:01 | NUR ---
End of Shift Notes: Patient completed his 5-day Ativan and 4-day Subutex taper as ordered. No adverse reactions noted. VS monitored closely. No significant abnormalities noted. Withdrawal symptoms were closely monitored. Patient's initial COWS 6/CIWA 5. Patient presented with anxiety, agitation, myalgia, and chills and hot flashes. Requires encouragement to participate in group and activities. Last COWS 3/CIWA 1. Will be discharging tomorrow. Fall and seizure precautions in place. All needs met and attended. Will continue to monitor closely.
--- NOTE | 2017-03-02 19:30 | NUR ---
START OF SHIFT Patient is a 26 year old male admitted for OPIATE/BENZO and ETOH dependency.Allergic to Cefaclor and hydroxyzine. On Regular diet. FULL CODE.Pt received in room,A/O X 4. Encouraged oral fluid intake as tolerated. Last COWS 3/CIWA 1. Pt has completed his taper and will be discharging tomorrow. Fall and seizure precautions in place. All needs met and attended. Will continue to monitor closely.
[2017-03-02 20:00] VITALS: BP 110/60
--- NOTE | 2017-03-03 | NUR ---
V/S REFUSED,COWS/CIWA DEFERRED PT SLEEPING COMFORTABLY IN BED,BREATHING EVEN AND NON LABORED,NO S/S OF DISTRESS NOTED.WILL CONTINUE TO MONITOR.
--- NOTE | 2017-03-03 04:00 | NUR ---
V/S REFUSED,COWS/CIWA DEFERRED PT SLEEPING COMFORTABLY IN BED,BREATHING EVEN AND NON LABORED,NO S/S OF DISTRESS NOTED.WILL CONTINUE TO MONITOR.
--- NOTE | 2017-03-03 06:20 | NUR ---
END OF SHIFT Patient is a 26 year old male admitted for OPIATE/BENZO and ETOH dependency.Allergic to Cefaclor and hydroxyzine.Regular diet. FULL CODE.Pt is A/O X 4. Encouraged oral fluid intake as tolerated. Last COWS 2/CIWA 1. Pt has completed his taper and will be discharging today. No PRN meds given last night.Pt slept 7 hrs,fluid intake was 1650,voided x 4.Fall and seizure precautions in place. No s/s of acute distress noted,,all safety measures in place per hospital policy,Call light kept in reach. All needs met and attended. Will continue to monitor closely.
--- NOTE | 2017-03-03 07:20 | NUR ---
Start of Shift Report from the night nurse: Pt is 26 y/o male her for Etoh r/t Vodka since 2008, Opiates r/t Heroin 1g IV daily since 2008, and Benzo r/t Xanax 2mg daily since 2014; 5 day Ativan & 4 day Subutex tapers ordered. Pt is and full code, allergic to Cefalor, fall and seizure precautions ordered, MRSA swab done on admission and is negative. HHx: anxiety, depression, ARF, OD x3 r/t substance abuse, multiple relapses and smoker. V/s stable yet run 90's/50's during sleep. Skin is intact. PRN trazodone given last night. Last CIWA 2. Pt is in room asleep. Will cont. to monitor the pt.
[2017-03-03 08:00] VITALS: BP 93/63
[2017-03-03 09:00] VITALS: BP 93/62
--- NOTE | 2017-03-03 09:40 | NUR ---
Discharge Pt is A&Ox 4 ambulatory independently. Features symmetrical, PERRLA 3 mm, no WHITNEY, no dizziness, no tremors or numbness & tingling noted. Pt denies chest pain & pulses present. Clear lung sounds in bilateral U/L lobes no SOB or acute respiratory distress noted. V/S Stable. No Ab discomfort, no N/V/D noted. Pt denies dysuria. No w/d s/sx noted. Skin is intact. Pt is given belongings and d/c summary packet with written Rx, no home medications brought. Pt is chaperoned to the lobby with to the [facility] and transported to [facility] facility.
== END 2017-03-03 09:40 | disposition other institution (70) | DRG 895 ==
LOC: SRC 02-25 00:30
PROVIDERS: ADMIT Internal Medicine; ATTEND Internal Medicine
PROC: HZ2ZZZZ Detoxification Services for Substance Abuse Treatment (ICD-10-PCS; principal; 2017-02-25)
PROC: HZ41ZZZ Group Counseling for Substance Abuse Treatment, Behavioral (ICD-10-PCS; 2017-02-26)
PROC: HZ31ZZZ Individual Counseling for Substance Abuse Treatment, Behavioral (ICD-10-PCS; 2017-02-28)
DX: F10.230 Alcohol dependence with withdrawal, uncomplicated (principal); E87.3 Alkalosis; D69.6 Thrombocytopenia, unspecified; E44.0 Moderate protein-calorie malnutrition; E86.0 Dehydration; Z68.1 Body mass index [BMI] 19.9 or less, adult; K70.9 Alcoholic liver disease, unspecified; F11.23 Opioid dependence with withdrawal; Y90.9 Presence of alcohol in blood, level not specified; F41.9 Anxiety disorder, unspecified; J45.20 Mild intermittent asthma, uncomplicated; F17.210 Nicotine dependence, cigarettes, uncomplicated; F13.10 Sedative, hypnotic or anxiolytic abuse, uncomplicated; G47.50 Parasomnia, unspecified; F32.9 Major depressive disorder, single episode, unspecified; F51.4 Sleep terrors [night terrors]; Z20.5 Contact with and (suspected) exposure to viral hepatitis; F12.10 Cannabis abuse, uncomplicated
CPT/HCPCS: 36415; 70030-TC; 80307; 80349; 80361; 82746; 83690; 83735; 84443; 85025; 86580; 86592; 86705; 86803; 87340; 87806; A4663; G0480; J3411